=== PATIENT | male | born 1965 | race Caucasian/White ===

== ENCOUNTER 2016-10-31 08:48 | Day surgery (SDC) | payer BC ==
--- NOTE | 2016-10-29 17:08 | PREOPHP ---
DATE OF ADMISSION: 10/31/2016 HISTORY: A 51-year-old male patient with a long history of nasal sinus problems treated with allerg y medications and cortisone sprays without relief, noted to have obstructive septal deviation and ch ronic sinusitis. Chronic sinusitis was diagnosed with a CT scan of the sinuses demonstrating polyps in the right maxillary sinus and throughout the sinuses on the right side. The patient has been un responsive to medication and is now admitted to the hospital for corrective surgery. PAST MEDICAL HISTORY: ALLERGIES: NONE. DAILY MEDICATIONS: Metoprolol. PRIOR SURGERY: None. CLOTTING DISORDERS: None. HABITS: Alcohol: Social. Tobacco 1 pack a day. Recreational drugs: None. FAMILY HISTORY AND REVIEW OF SYSTEMS: Negative. PHYSICAL EXAMINATION: GENERAL: Well-developed, well-nourished male patient in no acute distress. HEAD: Normocephalic. No masses or deformities. Ears and tympanic membranes normal. Nose: Obstru ctive septal deviation with polyps noted the right middle meatus. Oropharynx is clear. NECK: No masses or adenopathy. CHEST: Clear to P and A. HEART: Regular sinus rhythm without murmur. ABDOMEN: Soft, bowel sounds normal. No masses or megaly. EXTREMITIES: Full range of motion without deformity. NEUROLOGIC: Physiologic. RECTAL: Not done. IMPRESSION: Septal deviation with sinus polyposis. RECOMMENDATIONS: Admit for surgery. Dictated By: ADRIA KLEIN/NTS Conf#: [id number] DID#: [id number]
[2016-10-30 14:17] VITALS: BMI 27.2
[2016-10-31] VITALS (9 sets, daily range): BP systolic 100–138; BP diastolic 51–85; PULSE 66–99; RESP 11–29; Ht 175.3 cm; Wt 105.0 kg
[~2016-10-31] VITALS: Ht 175.3 cm; Wt 105.0 kg
[2016-10-31] MEDS ORDERED: METO-448 PO (09:41)
--- NOTE | 2016-10-31 13:05 | HPN ---
Date/Time of Note Date/Time of Note DATE: 10/31/16 TIME: 13:04 Interval H&P Admission Note Pt. seen H&P reviewed: No system changes ADRIA POTTER MD Oct 31, 2016 13:05
[2016-10-31] MEDS ORDERED: COCAINE 4% 4 ML TOP ONE ×2 (13:16→13:17)
[2016-10-31] MEDS ORDERED: LIDOCAINE 1%/EPI (MDV) 20 ML INJ ONE (13:16)
[2016-10-31] MEDS ORDERED: PROPOFOL 40 ML ONE (13:21)
[2016-10-31] MEDS ORDERED: ROCURONIUM 50 MG INJ ONE (13:21)
[2016-10-31] MEDS ORDERED: MIDAZOLAM 1 MG/ML 2 ML INJ ONE (13:22)
[2016-10-31] MEDS ORDERED: BACITRACIN/POLYMYXIN 28.35 GM OINT TOP ONE (14:10)
[2016-10-31] MEDS ORDERED: NEOSTIGMINE 3 MG/3 ML SYRINGE ONE (14:18)
[2016-10-31] MEDS ORDERED: GLYCOPYRROLATE 0.4 MG INJ ONE (14:18)
[2016-10-31] MEDS ORDERED: DEXAMETHASONE 4 MG/ML 1 ML INJ ONE (14:18)
[2016-10-31] MEDS ORDERED: KETOROLAC 30 MG INJ ONE (14:18)
[2016-10-31] MEDS ORDERED: METOCLOPRAMIDE 10 MG INJ ONE (14:18)
[2016-10-31] MEDS ORDERED: ONDANSETRON 4 MG INJ ONE (14:18)
[2016-10-31] MEDS ORDERED: DIPHENHYDRAMINE 50 MG INJ IV PRN (14:30)
[2016-10-31] MEDS ORDERED: morphine (1 MG/ML) 10ML SYRINGE IV PRN ×3 (14:30)
[2016-10-31] MEDS ORDERED: HYDROmorphONE (0.2 MG/ML) 10ML SYG IV PRN ×3 (14:30)
[2016-10-31] MEDS ORDERED: MEPERIDINE 25 MG INJ IV PRN (14:30)
[2016-10-31] MEDS ORDERED: ONDANSETRON 4 MG INJ IV PRN (14:30)
[2016-10-31] MEDS ORDERED: HYDROCODONE/APAP (7.5/325) TAB PO PRN (15:00)
--- NOTE | 2016-11-03 05:21 | OPR ---
DATE OF OPERATION: 10/31/2016 PREOPERATIVE DIAGNOSES 1. Chronic sinusitis. 2. Septal deviation. 3. Turbinate hypertrophy. 4. Polyposis. POSTOPERATIVE DIAGNOSES 1. Chronic sinusitis. 2. Septal deviation. 3. Turbinate hypertrophy. 4. Polyposis. OPERATIONS PERFORMED: Endoscopic right maxillary sinus surgery, endoscopic right anterior and poste rior ethmoid sinus surgery, endoscopic right frontal sinus surgery, septoplasty, turbinate reduction , nasal polypectomy. OPERATION IN DETAIL: The patient brought to the operating room under parenteral sedation and genera l oral endotracheal anesthesia with the patient in the supine position. Sterile sheets and drapes a pplied. The nose was anesthetized topically with 5% cottonoid cocaine and with Xylocaine 1% epineph rine 1:100,000 injectable. Polyps were removed from the right middle meatus. The inferior turbinat e bones were bilaterally outfractured. A left septal incision was made. Septal flaps elevated, exp osing the quadrilateral cartilage and the perpendicular plate of the ethmoid and vomer bones. The q uadrilateral was detached from the crest of the premaxilla and from the bony cartilaginous junction. Through and through cuts were made in the cartilage, allowing it to swing to the midline, correcti ng septal deviation. The septal compartment was then suctioned and the incision closed with interru pted 4-0 chromic. Attention was then turned to the right middle meatus, where and 30-degree t elescopes were utilized. The uncinate process was removed, and the dissection was carried posterior ly, with removal of polyps from the anterior and posterior ethmoid sinuses and from the nasofrontal recess. Polyps were removed from the ostium of the right maxillary sinus, which was then enlarged w ith the backbiting forceps. This completed the right-sided sinus procedure. The sinus cavity was s uctioned, and the nose was then packed with NasoPore, bacitracin-impregnated sponge. A 2x2 drip pad was applied. The patient was awakened and extubated in the operating room and returned to recovery in excellent condition. ESTIMATED BLOOD LOSS: Nil. COMPLICATIONS: None. Dictated By: ADRIA KLEIN/NTS Conf#: [id number] DID#: [id number]
== END 2016-10-31 15:43 | disposition home or self-care (01) ==
LOC: SDS 08:48
PROVIDERS: ATTEND Otolaryngology Otolaryngology/Facial Plastic Surgery
DX: J32.9 Chronic sinusitis, unspecified (principal); J34.2 Deviated nasal septum; J34.3 Hypertrophy of nasal turbinates; J33.8 Other polyp of sinus; F17.210 Nicotine dependence, cigarettes, uncomplicated
CPT/HCPCS: 30520; 30930; 31267; 88304; J1100; J1885; J2250; J2405; J2710; J2765; J3010; Z7610

== ENCOUNTER 2016-11-29 17:57 | Emergency (ER) | payer BC ==
[~2016-11-29] VITALS: Ht 182.9 cm; Wt 101.0 kg
[~2016-11-29 17:57] MED LIST: METO-448 PO
[2016-11-29 18:01] VITALS: Ht 182.9 cm; Wt 101.0 kg
[2016-11-29 19:29] LABS: ADD SCAN DIFF NO
[2016-11-29 19:32] LABS: BASOPHILS % 0.4 % (0.0-2.0); EOSINOPHILS # 0.1 10^3/ul (0.0-0.5); EOSINOPHILS % 1.6 % (0.0-7.0); HEMATOCRIT 48.2 % (42.0-52.0); HEMOGLOBIN 15.7 g/dl (14.0-18.0); LYMPHOCYTES # 2.7 10^3/ul (0.8-2.9); LYMPHOCYTES % 33.6 % (15.0-51.0); MEAN CORPUSCULAR HGB CONC 32.6 g/dl (32.0-37.0); MEAN CORPUSCULAR VOLUME 85.9 fl (82.0-101.0); MEAN PLATELET VOLUME 11.1 fl (7.4-10.4); MONOCYTE # 0.5 10^3/ul (0.3-0.9); MONOCYTES % 6.5 % (0.0-11.0); NEUTROPHIL # 4.7 10^3/ul (1.6-7.5); NEUTROPHILS % 57.5 % (39.0-77.0); PLATELET COUNT 239 10^3/UL (140-415); RED BLOOD COUNT 5.61 10^6/ul (4.70-6.10); RED CELL DISTRIBUTION WIDTH 13.4 % (11.5-14.5); WHITE BLOOD COUNT 8.2 10^3/ul (4.8-10.8)
[2016-11-29 19:39] LABS: ADD UMIC YES; URINE BILIRUBIN (Dip) NEGATIVE (NEGATIVE); URINE BLOOD (Dip) TRACE (NEGATIVE); URINE COLOR LT. YELLOW (YELLOW); URINE GLUCOSE (Dip) NEGATIVE (NEGATIVE); URINE KETONES (Dip) NEGATIVE (NEGATIVE); URINE LEUKOCYTE ESTERASE (Dip) NEGATIVE (NEGATIVE); URINE NITRITE (Dip) NEGATIVE (NEGATIVE); URINE TOTAL PROTEIN (Dip) NEGATIVE (NEGATIVE); URINE UROBILINOGEN (Dip) 0.2 E.U./dL (0.1-1.0)
[2016-11-29 19:46] LABS: ALBUMIN 4.5 g/dl (3.3-4.9)
[2016-11-29 19:47] LABS: POTASSIUM 4.3 mmol/L (3.5-5.1)
[2016-11-29 19:49] LABS: BACTERIA,URINE FEW; BILIRUBIN,INDIRECT 0.2 mg/dl (0-1.1); BILIRUBIN,TOTAL 0.2 mg/dl (0.2-1.3); CREATININE 0.74 mg/dl (0.61-1.24); URINE RBCS 0-2 /HPF (0)
--- NOTE | 2016-11-29 19:49 | ERD ---
ER Documentation Chief Complaint Date/Time DATE: 11/29/16 TIME: 19:47 Chief Complaint painful urination and lower abd pain x 2 weeks HPI 51-year-old male with a history of hypertension comes in with suprapubic abdominal pain, painful urination for 2 weeks. He describes it as a burning sensation when he pees, at times he has pressure-like pain when he urinates. It is localized to the suprapubic region. He denies any fevers, chills, vomiting or diarrhea. He had an episode of hematuria this morning. He states that he feels very nervous to be here in the emergency room, and it usually happens each time he goes to the doctor's office. He feels lightheaded at this time. No palpitations, syncope or loss of consciousness. ROS All systems reviewed and are negative except as per history of present illness. Medications Home Meds Active Scripts Naproxen* (Naprosyn*) 500 Mg Tablet, 500 MG PO BID Y for PAIN AND/OR INFLAMMATION, #30 TAB Prov:DERICK GONCALVES PA-C 11/29/16 Reported Medications Metoprolol Tartrate* (Lopressor*) 25 Mg Tab, 25 MG PO DAILY, #60 TAB 10/31/16 Allergies Allergies: Coded Allergies: No Known Allergy (Unverified , 10/31/16) PMhx/Soc History of Surgery: No Anesthesia Reaction: No Hx Neurological Disorder: No Hx Respiratory Disorders: Yes (nasal surgery) Hx Cardiac Disorders: Yes (pt has hypertension) Hx Psychiatric Problems: No Hx Miscellaneous Medical Probl: Yes (nasal surgery today) Hx Alcohol Use: Yes (occasionaly) Hx Substance Use: No Hx Tobacco Use: Yes (15 cigarettes a day) Smoking Status: Current every day smoker Physical Exam Vitals Vital Signs Date Time Temp Pulse Resp B/P Pulse Ox O2 Delivery O2 Flow Rate FiO2 11/29/16 18:01 98.1 90 18 147/88 98 Physical Exam General: Well-developed, nontoxic, no distress. Anxious appearing. HEENT: Head is normocephalic, atraumatic. No scleral icterus. Neck: Supple. Nontender. Lungs: Clear to auscultation. Normal air movement. Heart: Regular rate and rhythm. S1 and S2 are normal. No murmurs, gallops, or rubs. Abdomen: Soft, nontender, nondistended. Bowel sounds are normoactive. Extremities: No clubbing or cyanosis. Normal pulses. Moving extremities x 4. No weakness. Neurologic: Alert and oriented 3. No focal deficits. Skin: Normal turgor. No rash or lesions. Result Diagram: 11/29/16191911/29/161919 Results 24 hrs Laboratory Tests Test 11/29/16 19:20 Alanine Aminotransferase (ALT/SGPT) 40IU/L Albumin 4.5g/dl Albumin/Globulin Ratio 1.73 Alkaline Phosphatase 56IU/L Anion Gap 14 Aspartate Amino Transf (AST/SGOT) 18IU/L Basophils # 0.010^3/ul Basophils % 0.4% Blood Urea Nitrogen 19mg/dl Calcium Level 9.4mg/dl Carbon Dioxide Level 30mmol/L Chloride Level 104mmol/L Creatinine 0.74mg/dl Direct Bilirubin 0.00mg/dl Eosinophils # 0.110^3/ul Eosinophils % 1.6% Globulin 2.60g/dl Glucose Level 86mg/dl Hematocrit 48.2% Hemoglobin 15.7g/dl Indirect Bilirubin 0.2mg/dl Lipase 67U/L Lymphocytes # 2.710^3/ul Lymphocytes % 33.6% Mean Corpuscular Hemoglobin 28.0pg Mean Corpuscular Hemoglobin Concent 32.6g/dl Mean Corpuscular Volume 85.9fl Mean Platelet Volume 11.1fl Monocytes # 0.510^3/ul Monocytes % 6.5% Neutrophils # 4.710^3/ul Neutrophils % 57.5% Nucleated Red Blood Cells # 0.010^3/ul Nucleated Red Blood Cells % 0.0/100WBC Platelet Count 14480^3/UL Potassium Level 4.3mmol/L Red Blood Count 5.6110^6/ul Red Cell Distribution Width 13.4% Sodium Level 144mmol/L Total Bilirubin 0.2mg/dl Total Protein 7.1g/dl Urine Bacteria FEW Urine Bilirubin NEGATIVE Urine Clarity CLEAR Urine Color LT. YELLOW Urine Epithelial Cells RARE Urine Glucose NEGATIVE% Urine Hemoglobin TRACE Urine Ketones NEGATIVE Urine Leukocyte Esterase NEGATIVE Urine Microscopic RBC 0-2/HPF Urine Microscopic WBC 0-2/HPF Urine Nitrite NEGATIVE Urine Specific [place] 1.025 Urine Total Protein NEGATIVE Urine Urobilinogen 0.2 E.U./dL Urine pH 7.0 White Blood Count 8.210^3/ul 12-lead EKG(interpreted by supervising physician): Reviewed by Dr. Erazo Rate/Rhythm: Normal Sinus Rhythm, ventricular rate of 81 QRS, ST, T-waves: No changes consistent w/ acute ischemia, no intervals, no dysrhythmias, no ectopy Impression: No evidence of ischemia or arrhythmia PROCEDURE: CT abdomen and pelvis without IV contrast. CLINICAL INDICATION: Abdominal pain TECHNIQUE: CT scan of the abdomen and pelvis without contrast was performed on the [employer] volumetric [address] scanner. The patient was scanned without intravenous contrast. Coronal and sagittal reformatted images were obtained from the axial source images. The CTDI vol is 14.41 mGy and the DLP is 892.89 mGy-cm. COMPARISON: None. FINDINGS: CT abdomen: Sub centimeter subpleural nodules are seen in the right middle lobe and lingula with the largest seen in the right middle lobe measuring 7 mm in size on series 3 and image number 18. The remaining lung bases are clear. The heart size is not enlarged and is without pericardial thickening or effusion. The liver is normal in density and is without focal mass or intrahepatic biliary dilatation. A probable simple cyst in the left hepatic lobe is seen measuring 9 mm in size. The liver is enlarged measuring 21.9 cm in size. The spleen is enlarged measuring 12.4 cm in size. The spleen is homogeneous in density. The stomach is grossly unremarkable. The pancreas as visualized is normal. The gallbladder and biliary tree are unremarkable and there is no evidence for common bile duct dilatation. The adrenal glands are symmetric and normal. The kidneys are symmetrically unremarkable as well. A probable cyst in the right kidney is seen measuring 9 mm in size. No renal calculus or obstructive uropathy or mass lesion is seen. The aorta is of normal in caliber. There is no retroperitoneal lymphadenopathy. The denzel hepatis region is clear. The small and large bowel and mesentery, as visualized, are unremarkable. The normal appendix is identified. CT pelvis: The pelvic organs are normal. The pelvic sidewalls and inguinal regions are clear. No pelvic mass, lymphadenopathy, or free fluid is seen. No acute inflammation is seen. The urinary bladder is within normal limits. The surrounding osseous structures are unremarkable. No osteolytic or osteoblastic lesion is detected. IMPRESSION: 1. No acute pathology in the abdomen and pelvis. 2. Hepatosplenomegaly. 3. Subcentimeter nodules in the right middle lobe and lingula along the superior margin. Recommendations Solid nodules Nodule size: = 4 mm - low risk patients: no follow-up needed - high risk patients: follow-up at 12 months and if no change, no further imaging needed Nodule size: 4-6 mm - low risk patients: follow-up at 12 months and if no change, no further imaging needed - high risk patients: initial follow-up CT at 6-12 months and then at 18-24 months if no change Nodule size: >6-8 mm - low risk patients: initial follow-up CT at 6-12 months and then at 18-24 months if no change - high risk patients: initial follow-up CT at 3-6 months and then at 9-12 and 24 months if no change Nodule size: >8 mm - either low or high risk patients - follow-up CTs at around 3, 9, and 24 months - dynamic contrast enhanced CT, PET, and/or biopsy Note: newly detected indeterminate nodule in persons 35 years of age or older. - low risk patients: minimal or absent history of smoking and or other known risk factors - high risk patients: history of smoking or of other known risk factors (e.g. first degree relative with lung cancer, or exposure to asbestos, radon, uranium) if a nodule up to 8 mm is partly solid or is ground glass further follow up is required after 24 months to exclude possible slow growing adenocarcinoma (SHERRY) RPTAT: HPNM Physician Fartun Date Time Electronically viewed and signed by Physician Fartun on 11/29/2016 20 :21 Procedures/MDM 51-year-old male comes to the emergency room with lower abdominal pain that is pelvic type of pressure pain for the past 2 weeks. Patient's workup was unremarkable, there is no leukocytosis, no signs of renal insufficiency. Urine was unremarkable. CT abdomen pelvis was obtained, there is no evidence of diverticulitis, or intra-abdominal mass. Incidental finding was found on the CT scan, the right middle lobe showed a 7 mm nodule. I discussed these findings with the patient, he was given a copy of the CT scan as well as his blood work and was advised to recheck with his primary care doctor. This patient states that he did have a CT scan, he believes it was of the abdomen in September of last year with his primary care physician. I have asked him to follow-up with his primary doctor so they may compare the results, request for further imaging at this time. There are no surgical or acute abdominal processes at this time, I discussed the CT results and my attending physician, Dr. Love agrees that this patient may follow-up outpatient. Patient's blood pressure was elevated (>120/80) but appears stable without evidence of hypertension emergency or urgency. The patient was counseled about the risks of hypertension and urged to pursue outpatient monitoring and therapy within a week with their primary care physician. Departure Diagnosis: Primary Impression: Abdominal pain Condition: DERICK Arroyo PA-C Nov 29, 2016 19:49
[2016-11-29 19:50] LABS: ALBUMIN/GLOBULIN RATIO 1.73; CALCIUM 9.4 mg/dl (8.4-10.2); TOTAL PROTEIN 7.1 g/dl (6.1-8.1)
--- NOTE | 2016-11-29 20:22 | RADRPT ---
PROCEDURE: CT abdomen and pelvis without IV contrast. CLINICAL INDICATION: Abdominal pain TECHNIQUE: CT scan of the abdomen and pelvis without contrast was performed on the [employer] volumetric [address] scanner. The patient was scanned without intravenous contrast. Coronal and sagittal refo rmatted images were obtained from the axial source images. The CTDI vol is 14.41 mGy and the DLP is 892.89 mGy-cm. COMPARISON: None. FINDINGS: CT abdomen: Sub centimeter subpleural nodules are seen in the right middle lobe and lingula with the largest see n in the right middle lobe measuring 7 mm in size on series 3 and image number 18. The remaining rafael ng bases are clear. The heart size is not enlarged and is without pericardial thickening or effusio n. The liver is normal in density and is without focal mass or intrahepatic biliary dilatation. A proba ble simple cyst in the left hepatic lobe is seen measuring 9 mm in size. The liver is enlarged measu ring 21.9 cm in size. The spleen is enlarged measuring 12.4 cm in size. The spleen is homogeneous in density. The stomach is grossly unremarkable. The pancreas as visualized is normal. The gallbl adder and biliary tree are unremarkable and there is no evidence for common bile duct dilatation. T he adrenal glands are symmetric and normal. The kidneys are symmetrically unremarkable as well. A p robable cyst in the right kidney is seen measuring 9 mm in size. No renal calculus or obstructive ur opathy or mass lesion is seen. The aorta is of normal in caliber. There is no retroperitoneal lymphadenopathy. The denzel hepatis region is clear. The small and large bowel and mesentery, as visualized, are unremarkable. The norm al appendix is identified. CT pelvis: The pelvic organs are normal. The pelvic sidewalls and inguinal regions are clear. No pelvic mass, lymphadenopathy, or free fluid is seen. No acute inflammation is seen. The urinary bladder is wit hin normal limits. The surrounding osseous structures are unremarkable. No osteolytic or osteoblastic lesion is detect ed. IMPRESSION: 1. No acute pathology in the abdomen and pelvis. 2. Hepatosplenomegaly. 3. Subcentimeter nodules in the right middle lobe and lingula along the superior margin. Recommendations Solid nodules Nodule size: = 4 mm - low risk patients: no follow-up needed - high risk patients: follow-up at 12 months and if no change, no further imaging needed Nodule size: 4-6 mm - low risk patients: follow-up at 12 months and if no change, no further imaging needed - high risk patients: initial follow-up CT at 6-12 months and then at 18-24 months if no change Nodule size: >6-8 mm - low risk patients: initial follow-up CT at 6-12 months and then at 18-24 months if no change - high risk patients: initial follow-up CT at 3-6 months and then at 9-12 and 24 months if no change Nodule size: >8 mm - either low or high risk patients - follow-up CTs at around 3, 9, and 24 months - dynamic contrast enhanced CT, PET, and/or biopsy Note: newly detected indeterminate nodule in persons 35 years of age or older. - low risk patients: minimal or absent history of smoking and or other known risk factors - high risk patients: history of smoking or of other known risk factors (e.g. first degree relative with lung cancer, or exposure to asbestos, radon, uranium) if a nodule up to 8 mm is partly solid or is ground glass further follow up is required after 24 mon ths to exclude possible slow growing adenocarcinoma (SHERRY) RPTAT: HPNM Physician Fartun Date Time Electronically viewed and signed by Vickey Reilly Physician on 11/29/2016 20:21 /
[2016-11-29] MEDS ORDERED: NAPR-260 PO (20:57)
== END 2016-11-29 21:37 | disposition home or self-care (01) ==
LOC: FTE 17:57
DX: R10.30 Lower abdominal pain, unspecified (principal); I10 Essential (primary) hypertension; F17.210 Nicotine dependence, cigarettes, uncomplicated; R42 Dizziness and giddiness
CPT/HCPCS: 36415; 74176; 80053; 81001; 83690; 85025; Z7502; 81003; 93005